=== PATIENT | female | born 1990 | race Caucasian/White ===

== ENCOUNTER 2022-10-15 07:44 | Day surgery (SDC) | payer OTHER ==
[~2022-10-15] VITALS: Ht 160 cm; Wt 73.8 kg
[~2022-10-15 07:44] MED LIST: BUPIVACAINE HCL 0.25% 30ML VIAL As Ordered ONE
[2022-10-15] MEDS ORDERED: LR 1,000 ML IV SCH ×2 (08:45→10:20)
[2022-10-15] MEDS ORDERED: KETOROLAC 60MG 2ML VIAL As Ordered ONE (08:48)
[2022-10-15] MEDS ORDERED: ONDANSETRON 4MG 2ML VIAL As Ordered ONE ×2 (08:48→10:09)
[2022-10-15] MEDS ORDERED: LIDOCAINE 2% 100MG/5ML SDV (FOR ANES.) As Ordered ONE (08:48)
[2022-10-15] MEDS ORDERED: propofoL 200 MG/20 ML VIAL As Ordered ONE (08:48)
[2022-10-15] MEDS ORDERED: fentaNYL 100 MCG/2 ML INJECTION As Ordered ONE (08:49)
[2022-10-15] MEDS ORDERED: MIDAZOLAM INJ 2MG/2ML VIAL As Ordered ONE (08:50)
[2022-10-15] MEDS ORDERED: oxyCODONE 5MG TAB PO PRN (10:20)
[2022-10-15] MEDS ORDERED: TRAM50TA2 PO (10:20)
[2022-10-15] MEDS ORDERED: fentaNYL 100 MCG/2 ML INJECTION IV PRN (10:20)
[2022-10-15] MEDS ORDERED: ONDANSETRON 4MG 2ML VIAL IV PRN (10:20)
[2022-10-15 11:30] VITALS: BP 122/82
== END 2022-10-15 11:38 | disposition home or self-care (01) ==
LOC: M SDC 07:44
PROVIDERS: ATTEND Orthopaedic Surgery Hand Surgery
DX: M67.432 Ganglion, left wrist (principal)
CPT/HCPCS: 25111; 76000; 81025; 88305; J1100; J1885; J2250; J2405; J3010; S0020